=== PATIENT | female | born 1995 | race Two or more races ===

== ENCOUNTER 2020-04-01 08:09 | Observation (INO) | payer OTHER, MEDICAID ==
[~2020-04-01] VITALS: Ht 157.5 cm; Wt 61.2 kg
[2020-04-01] MEDS ORDERED: PREN-96 PO (09:09)
[2020-04-01] MEDS: TERBUTALINE SULFATE 1 MG/ML 1ML VIAL SC SCH ×3 (10:08→11:26)
[2020-04-01] MEDS ORDERED: NIF10C GT (12:34)
[2020-04-01] MEDS ORDERED: NIF10C PO (12:42)
== END 2020-04-01 12:57 | disposition home or self-care (01) ==
LOC: LDRP 08:09
PROVIDERS: ADMIT Specialist; ATTEND Specialist
DX: O99.891 Other specified diseases and conditions complicating pregnancy (principal); N13.30 Unspecified hydronephrosis; O60.03 Preterm labor without delivery, third trimester; Z3A.33 33 weeks gestation of pregnancy; Z79.899 Other long term (current) drug therapy
CPT/HCPCS: 59025; 76818; 81002; 94760; 96372; G0378; J3105

== ENCOUNTER 2020-04-10 08:16 | Observation (INO) | payer MEDICAID ==
[~2020-04-10 08:16] MED LIST: NIF10C PO; PREN-96 PO
== END 2020-04-10 10:06 | disposition home or self-care (01) ==
LOC: LDRP 08:16
PROVIDERS: ADMIT Obstetrics & Gynecology; ATTEND Obstetrics & Gynecology
DX: O35.8XX0 Maternal care for other (suspected) fetal abnormality and damage, not applicable or unspecified (principal); Z3A.34 34 weeks gestation of pregnancy
CPT/HCPCS: 59025; 76818; 81002; G0378

== ENCOUNTER 2020-04-15 13:09 | Observation (INO) | payer MEDICAID | END 2020-04-15 14:45 | disposition home or self-care (01) | LOC: LDRP 13:09 | PROVIDERS: ADMIT Specialist; ATTEND Specialist | DX: O99.891 Other specified diseases and conditions complicating pregnancy (principal); N13.30 Unspecified hydronephrosis; O60.03 Preterm labor without delivery, third trimester; Z3A.35 35 weeks gestation of pregnancy | CPT/HCPCS: 59025; 76818; 81002; G0378 ==

== ENCOUNTER 2020-04-22 08:05 | Observation (INO) | payer MEDICAID ==
[~2020-04-22] VITALS: Ht 160 cm; Wt 63.5 kg
== END 2020-04-22 09:30 | disposition home or self-care (01) ==
LOC: LDRP 08:05
PROVIDERS: ADMIT Obstetrics & Gynecology; ATTEND Obstetrics & Gynecology
DX: O26.893 Other specified pregnancy related conditions, third trimester (principal); N13.30 Unspecified hydronephrosis; Z3A.36 36 weeks gestation of pregnancy
CPT/HCPCS: 59025; 76818; 81002; G0378

== ENCOUNTER 2020-04-29 08:13 | Observation (INO) | payer MEDICAID | END 2020-04-29 10:15 | disposition home or self-care (01) | LOC: LDRP 08:13 | PROVIDERS: ADMIT Obstetrics & Gynecology; ATTEND Obstetrics & Gynecology | DX: O99.891 Other specified diseases and conditions complicating pregnancy (principal); N13.30 Unspecified hydronephrosis; Z3A.37 37 weeks gestation of pregnancy | CPT/HCPCS: 59025; 76818; 81002; G0378 ==

== ENCOUNTER 2020-05-02 16:15 | Observation (INO) | payer MEDICAID ==
[~2020-05-02 16:15] MED LIST changes: -NIF10C PO
== END 2020-05-02 17:10 | disposition home or self-care (01) ==
LOC: LDRP 16:15
PROVIDERS: ADMIT Obstetrics & Gynecology; ATTEND Obstetrics & Gynecology
DX: O35.8XX0 Maternal care for other (suspected) fetal abnormality and damage, not applicable or unspecified (principal); O26.893 Other specified pregnancy related conditions, third trimester; N89.8 Other specified noninflammatory disorders of vagina; O62.9 Abnormality of forces of labor, unspecified; Z3A.37 37 weeks gestation of pregnancy
CPT/HCPCS: 59025; 76818; 81002; G0378

== ENCOUNTER 2020-05-06 10:50 | Observation (INO) | payer MEDICAID | END 2020-05-06 12:15 | disposition home or self-care (01) | LOC: LDRP 10:50 → UNDODISOB 12:15 | PROVIDERS: ADMIT Specialist; ATTEND Specialist | DX: O35.8XX0 Maternal care for other (suspected) fetal abnormality and damage, not applicable or unspecified (principal); O26.853 Spotting complicating pregnancy, third trimester; Z3A.38 38 weeks gestation of pregnancy | CPT/HCPCS: 59025; 76818; 81002; G0378 ==

== ENCOUNTER 2020-05-09 21:03 | Inpatient (IN) | payer MEDICAID ==
[~2020-05-09] VITALS: Ht 157.5 cm; Wt 65.8 kg
[2020-05-09] MEDS ORDERED: PHISODERM TOP SOLN 240ML BTL TOP PRN (21:30)
[2020-05-09] MEDS ORDERED: LACT. RINGERS/OXYTOCIN 20UNITS 1,000 ML IV ONE (21:30)
[2020-05-09] MEDS ORDERED: DERMOPLAST 60ML BOTTLE TOP PRN (21:30)
[2020-05-09] MEDS ORDERED: LIDOCAINE 2%HCL (LOCAL ANESTH.) INJ 20ML MDV IJ ONE (21:30)
[2020-05-09] MEDS ORDERED: WITCH HAZEL-GLYCERIN PAD TOP PRN (21:30)
[2020-05-09 21:58] LABS: Basophils # (auto) 0 10 ^3/uL (0-0.2); Basophils % (auto) 0.3 % (0.0-2.0); Eosinophils # (auto) 0 10 ^3/uL (0-0.8); Hematocrit 43.1 % (36.0-46.0); Hemoglobin 14.4 g/dL (12.2-16.2); Lymphocytes # (auto) 1.1 10 ^3/uL (0.4-5.4); Lymphocytes % (auto) 7.8 % (10.0-50.0); Mean Corpuscular Hemoglobin 31.3 pg (28.0-32.0); Mean Corpuscular Hgb Conc. 33.5 g/dL (32.0-36.0); Mean Corpuscular Volume 93.4 fL (80.0-100.0); Monocytes # (auto) 0.8 10 ^3/uL (0-1.3); Monocytes % (auto) 5.4 % (0.0-12.0); Neutrophils # (auto) 12.8 10 ^3/uL (1.6-8.6); Neutrophils % (auto) 86.5 % (37.0-80.0); Platelet Count (auto) 243 10^3/uL (140-450); Red Blood Cells 4.61 10^6/uL (4.0-5.20); White Blood Cell 14.7 10^3/uL (4.4-10.8)
[2020-05-09 22:11] LABS: Urine Amorphous Crystal FEW /hpf (None Seen); Urine Bacteria FEW /hpf (None Seen); Urine Blood Negative /uL (Negative); Urine Mucus FEW (None Seen); Urine Specific Gravity 1.014 (1.001-1.035); Urine WBC 43 /hpf (0 - 5); Urine WBC Clumps PRESENT /hpf (None Seen)
[2020-05-09 22:19] LABS: Albumin 3.1 g/dL (3.4-5.0); Calcium 9.3 mg/dL (8.5-10.1); Potassium 3.6 mmol/L (3.5-5.1)
[2020-05-09 22:58] LABS: BUN/Creatinine Ratio 12.3; Bilirubin, Total 0.4 mg/dL (0.2-1.0); Total Protein 7.4 g/dL (6.4-8.2)
[2020-05-09] MEDS: LACTATED RINGER'S 1,000 ML IV SCH (23:15)
[2020-05-09 23:16] LABS: INR 0.91 (0.9-1.15); Partial Thromboplastin Time 28.2 sec (23.0-31.2)
[2020-05-10] MEDS ORDERED: ACETAMINOPHEN 325 MG TAB PO PRN (00:45)
[2020-05-10] MEDS ORDERED: IBUPROFEN 600 MG TAB PO PRN (00:45)
[2020-05-10] MEDS ORDERED: INFLUENZA QUAD 2020-2021 0.5 ML SYRG IM ONE (01:00)
[2020-05-10] MEDS: IBUPROFEN 600 MG TAB PO PRN ×4 (02:32→19:45)
[2020-05-10 02:33] VITALS: BP 110/55
[2020-05-10 07:17] VITALS: BP 121/71
[2020-05-10] MEDS ORDERED: DOCUSATE CALCIUM 240 MG CAP PO SCH (10:00)
[2020-05-10 11:30] VITALS: BP 128/50
[2020-05-10] MEDS: LACTATED RINGER'S 1,000 ML IV SCH ×2 (13:30→21:17)
[2020-05-10 15:30] VITALS: BP 108/56
[2020-05-10 19:40] VITALS: BP 109/58
[2020-05-10 23:15] VITALS: BP 103/52
[2020-05-11 03:24] VITALS: BP 105/58
[2020-05-11 06:05] LABS: RPR Non Reactive (Non Reactive)
== END 2020-05-11 12:23 | disposition home or self-care (01) | DRG 560 ==
LOC: LDRP 21:03 → OBSVTOIN 21:10 → LDRP 21:49
PROVIDERS: ADMIT Specialist; ATTEND Specialist
PROC: 10E0XZZ Delivery of Products of Conception, External Approach (ICD-10-PCS; principal; 2020-05-09)
DX: O80 Encounter for full-term uncomplicated delivery (principal); Z37.0 Single live birth; Z3A.38 38 weeks gestation of pregnancy; Z20.822 Contact with and (suspected) exposure to COVID-19; Z23 Encounter for immunization
CPT/HCPCS: 36415; 59025; 59409; 80053; 81001; 81002; 85025; 85610; 85730; 86592; 86850; 86900; 86901; 87426; 96360; 96365; 96366; G0378; J2590